=== PATIENT | female | born 1940 | race Caucasian/White ===

== ENCOUNTER → 2022-10-03 | Day surgery (SDC) | payer MEDICARE ==
[2022-09-28 13:47] LABS: BASOPHILS % 0.7 % (0.0-1.0); EOSINOPHILS # (AUTO) 0.2 (0.0-0.4); EOSINOPHILS % 4.5 % (0.0-6.0); HEMATOCRIT 37.8 % (34.2-44.1); HEMOGLOBIN 12.1 g/dL (12.0-16.0); LYMPHOCYTES # (AUTO) 1.7 (1.0-3.2); LYMPHOCYTES % 37.3 % (18.0-39.1); MEAN CORPUSCULAR HEMOGLOBIN 26.7 pg (28-32); MEAN CORPUSCULAR VOLUME 83.3 fL (81-99); MONOCYTES # (AUTO) 0.6 (0.2-0.8); MONOCYTES % 12.5 % (4.4-11.3); NEUTROPHILS % 44.8 % (38.7-80.0); PLATELET COUNT 106 x10e3/uL (140-360); RED BLOOD COUNT 4.54 x10e6/uL (3.6-5.1)
[~2022-10-03] MED LIST: ALTOPREV40 MG PO; CALCIUM 600 +1 EAC2 PO; EPHEDRINE SULFATE INJ 50 MG/ML VIAL ONE; FENTANYL CITRATE/PF 100MCG/2 ML INJ ONE; HYDROXYZIN10 MG/5 ML PO; KETAMINE HCL INJ 50 MG/ML 10 ML VIAL ONE; LACTATED RINGER'S 1,000 ML ONE; LEVOTHYROXINE112 MCG PO; MIDAZOLAM HCL 2 MG/2 ML VIAL ONE; MUCINEX DM ER1 EACH PO; OXYBUTYNIN CHLOR5 M1 PO; PHENYLEPHRINE HCL 1% 10 MG/ML VIAL ONE; PREDNISONE5 MG PO; PROBIOTIC & AC1 EACH PO; PROPOFOL IV EMULSION 10 MG/ML 50 ML VIAL IV ONE; PROPOFOL IV EMULSION 50 ML IV ONE; SULFASALAZINE500 MG PO; TRAMADOL HCL100 MG PO; VIT D PO; ZESTRIL10 MG PO; ZYRTEC-D TABLE1 EACH PO
[2022-10-03 10:01] VITALS: TEMP 97.1
[2022-10-03 11:00] VITALS: BP 111/70; PULSE 71; RESP 17; O2SAT 98
== END | disposition home or self-care (01) ==
LOC: OR 06:46
PROVIDERS: ATTEND Internal Medicine Gastroenterology
DX: K20.90 Esophagitis, unspecified without bleeding (principal); K63.5 Polyp of colon; K62.1 Rectal polyp; K29.50 Unspecified chronic gastritis without bleeding; K21.9 Gastro-esophageal reflux disease without esophagitis; K57.30 Diverticulosis of large intestine without perforation or abscess without bleeding; K64.8 Other hemorrhoids; R19.7 Diarrhea, unspecified; R15.2 Fecal urgency; R15.9 Full incontinence of feces; D72.820 Lymphocytosis (symptomatic); D64.9 Anemia, unspecified; I10 Essential (primary) hypertension; E78.5 Hyperlipidemia, unspecified; E03.9 Hypothyroidism, unspecified; Z01.810 Encounter for preprocedural cardiovascular examination; Z01.812 Encounter for preprocedural laboratory examination; Z79.899 Other long term (current) drug therapy; Z85.3 Personal history of malignant neoplasm of breast; Z80.0 Family history of malignant neoplasm of digestive organs
CPT/HCPCS: 36415; 43239; 43450; 45380; 45385; 85025; 93005; C9113; J2250; J2370; J2704; J3010; J7121; 45378

== ENCOUNTER → 2023-04-09 | Outpatient (REF) | payer MEDICARE ==
[~2023-04-09] MED LIST changes: -EPHEDRINE SULFATE INJ 50 MG/ML VIAL ONE; -FENTANYL CITRATE/PF 100MCG/2 ML INJ ONE; -KETAMINE HCL INJ 50 MG/ML 10 ML VIAL ONE; -LACTATED RINGER'S 1,000 ML ONE; -MIDAZOLAM HCL 2 MG/2 ML VIAL ONE; -PHENYLEPHRINE HCL 1% 10 MG/ML VIAL ONE; -PROPOFOL IV EMULSION 10 MG/ML 50 ML VIAL IV ONE; -PROPOFOL IV EMULSION 50 ML IV ONE
== END ==
LOC: NM 12:33
PROVIDERS: ATTEND Internal Medicine Gastroenterology
DX: R10.10 Upper abdominal pain, unspecified (principal)
CPT/HCPCS: 78227; A9537

== ENCOUNTER 2024-08-08 15:32 | Inpatient (IN) | payer MEDICARE ==
[~2024-08-08] VITALS: Ht 154.9 cm; Wt 72.6 kg
[2024-08-08] MEDS: ONDANSETRON HCL INJ 2MG/ML 2ML 2 MG/ML VIAL IV STA (16:59)
[2024-08-08] MEDS: SODIUM CHLORIDE 0.9% 1000ML 1,000 ML IV SCH ×3 (17:00→22:46)
[2024-08-08 17:21] LABS: BASOPHILS % 0.4 % (0.0-1.0); HEMATOCRIT 31.2 % (34.2-44.1); HEMOGLOBIN 10.1 g/dL (12.0-16.0); LYMPHOCYTES # (AUTO) 0.7 (1.0-3.2); LYMPHOCYTES % 8.3 % (18.0-39.1); MEAN CORPUSCULAR HEMOGLOBIN 25.3 pg (28-32); MEAN CORPUSCULAR HGB CONC 32.4 g/dL (31-35); MONOCYTES # (AUTO) 0.4 (0.2-0.8); MONOCYTES % 5.2 % (4.4-11.3); NEUTROPHILS # (AUTO) 7.1 (2.1-6.9); NEUTROPHILS % 85.6 % (38.7-80.0); PLATELET COUNT 175 x10e3/uL (140-360); RED CELL DISTRIBUTION WIDTH 16.1 % (11.7-14.4)
[2024-08-08 17:30] LABS: INR 1.15; PROTHROMBIN TIME 15.4 seconds (11.9-14.5)
[2024-08-08 17:31] LABS: PARTIAL THROMBOPLASTIN TIME 32.7 seconds (23.8-35.5)
[2024-08-08 17:37] LABS: ALBUMIN 2.7 g/dL (3.5-5.0); ALBUMIN/GLOBULIN RATIO 0.7 (0.8-2.0); ANION GAP 16.2 mmol/L (8-16); BILIRUBIN,TOTAL 0.9 mg/dL (0.2-1.2); CALCIUM 9.2 mg/dL (8.4-10.2); CREATININE, SERUM 1.33 mg/dL (0.57-1.11); POTASSIUM 4.2 mmol/L (3.5-5.1); TOTAL PROTEIN 6.8 g/dL (6.5-8.1)
[2024-08-08 17:39] LABS: CORONAVIRUS COVID-19 AG NEGATIVE (NEGATIVE); INFLUENZA B AG NEGATIVE (NEGATIVE)
[2024-08-08 17:40] LABS: INFLUENZA A AG POSITIVE (NEGATIVE)
[2024-08-08] MEDS ORDERED: OSELTAMIVIR PHOSPHATE 75 MG CAP PO SCH (17:45)
[2024-08-08] MEDS: ACETAMINOPHEN 325 MG TAB PO ONE (17:59)
[2024-08-08 18:00] LABS: BILIRUBIN,URINE SMALL (NEGATIVE); CLARITY,URINE SL CLOUDY (CLEAR); COLOR,URINE YELLOW (YELLOW); GLUCOSE, URINE NEGATIVE (NEGATIVE); KETONES,URINE NEGATIVE (NEGATIVE); LEUKOCYTE ESTERASE ,URINE NEGATIVE (NEGATIVE); NITRITE,URINE NEGATIVE (NEGATIVE); PH,URINE 5.5 (5 - 7); PROTEIN,URINE DIPSTICK >=300 (NEGATIVE); URINE UROBILINOGEN 0.2 mg/dL (0.2 - 1)
[2024-08-08 18:07] LABS: EPITHELIAL CELLS,URINE MANY /LPF
[2024-08-08 18:08] LABS: BACTERIA,URINE FEW /HPF; RBC,URINE 0-5 /HPF (0-5)
[2024-08-08] MEDS: OSELTAMIVIR PHOSPHATE 75 MG CAP PO ONE (18:26)
[2024-08-08] MEDS: KETOROLAC TROMETHAMINE 30 MG/ML VIAL IV STA (18:26)
[2024-08-08 19:36] VITALS: TEMP 98.6
[2024-08-08] MEDS: SODIUM CHLORIDE 0.9% 500ML 500 ML IV ONE ×2 (20:14→21:18)
[2024-08-08 21:45] VITALS: PULSE 76; RESP 15
[2024-08-08 22:45] VITALS: BP 74/46; PULSE 78; RESP 16; O2SAT 97
[2024-08-08] MEDS: MUPIROCIN 2% OINT 22 GM TUBE TOP SCH (22:46)
[2024-08-08 23:00] VITALS: BP 77/51; PULSE 76; RESP 14; TEMP 98.1; O2SAT 97
[2024-08-09] VITALS (28 sets, daily range): BP systolic 78–161; BP diastolic 46–86; PULSE 73–105; RESP 11–23; TEMP 98.8–100.9; O2SAT 94–100
[2024-08-09] MEDS ORDERED: PIOGLITAZONE15 MG PO (00:22)
[2024-08-09] MEDS ORDERED: HYDRALAZINE HCL 20 MG/ML VIAL IV PRN (02:45)
[2024-08-09] MEDS ORDERED: GUAIFENESIN/DEXTROMETHORPHAN LIQD 5 ML UDC PO PRN (02:45)
[2024-08-09] MEDS ORDERED: DOCUSATE SODIUM 100 MG CAP PO PRN (02:45)
[2024-08-09] MEDS ORDERED: ONDANSETRON HCL INJ 2MG/ML 2ML 2 MG/ML VIAL IV PRN (02:45)
[2024-08-09] MEDS: ACETAMINOPHEN 325 MG TAB PO PRN (03:32)
[2024-08-09 07:07] LABS: BASOPHILS % 0.3 % (0.0-1.0); EOSINOPHILS % 0.3 % (0.0-6.0); HEMATOCRIT 28.9 % (34.2-44.1); HEMOGLOBIN 9.1 g/dL (12.0-16.0); LYMPHOCYTES # (AUTO) 0.6 (1.0-3.2); LYMPHOCYTES % 9.5 % (18.0-39.1); MEAN CORPUSCULAR HEMOGLOBIN 25.2 pg (28-32); MEAN CORPUSCULAR HGB CONC 31.5 g/dL (31-35); MEAN CORPUSCULAR VOLUME 80.1 fL (81-99); MONOCYTES # (AUTO) 0.3 (0.2-0.8); MONOCYTES % 5.1 % (4.4-11.3); NEUTROPHILS # (AUTO) 5.1 (2.1-6.9); PLATELET COUNT 138 x10e3/uL (140-360); RED BLOOD COUNT 3.61 x10e6/uL (3.6-5.1); RED CELL DISTRIBUTION WIDTH 16.6 % (11.7-14.4); WHITE BLOOD COUNT 6.02 x10e3/uL (4.8-10.8)
[2024-08-09 07:43] LABS: ANION GAP 11.2 mmol/L (8-16); CALCIUM 8.7 mg/dL (8.4-10.2); CREATININE, SERUM 1.04 mg/dL (0.57-1.11); POTASSIUM 4.2 mmol/L (3.5-5.1)
[2024-08-09] MEDS: MULTIVITAMINS/MINERALS TAB PO SCH (08:15)
[2024-08-09] MEDS: LACTATED RINGER'S 1,000 ML INJ ONE (09:05)
[2024-08-09] MEDS: LACTOBACILLUS ACIDOPHILUS CAPSULE PO SCH (09:28)
[2024-08-09] MEDS: OSELTAMIVIR PHOSPHATE 30 MG CAPSULE PO SCH (09:28)
[2024-08-09] MEDS: LEVOTHYROXINE SODIUM 25 MCG TABLET PO SCH (11:09)
[2024-08-09] MEDS: LEVOTHYROXINE SODIUM 112 MCG TAB PO SCH (11:09)
[2024-08-09 13:04] LABS: CDIFF AG QUIK CHEK **POSITIVE** (NEGATIVE); CDIFF TOX QUIK CHEK **POSITIVE** (NEGATIVE)
[2024-08-09] MEDS: VANCOMYCIN 250MG/5ML ORAL SOLN PO SCH (13:23)
[2024-08-09] MEDS: METRONIDAZOLE 500MG/NS 100ML 100 ML IV SCH (13:24)
[2024-08-09] MEDS: ENOXAPARIN SOD INJ 40 MG/0.4 ML SYR SC SCH (16:42)
[2024-08-09] MEDS: TRAMADOL HCL 50 MG TAB PO PRN (18:26)
[2024-08-09] MEDS: ACETAMINOPHEN/CODEINE 300MG - 30MG TAB PO PRN (18:38)
[2024-08-09] MEDS: MELATONIN 3 MG TAB PO PRN (21:40)
[2024-08-10] VITALS (14 sets, daily range): BP systolic 104–136; BP diastolic 57–82; PULSE 77–98; RESP 13–20; TEMP 98–99.7; O2SAT 92–100
[2024-08-10] MEDS: DICYCLOMINE HCL 20 MG TAB PO STA (02:42)
[2024-08-10 06:56] LABS: BASOPHILS % 0.7 % (0.0-1.0); EOSINOPHILS # (AUTO) 0.1 (0.0-0.4); EOSINOPHILS % 2.6 % (0.0-6.0); HEMATOCRIT 27.9 % (34.2-44.1); HEMOGLOBIN 8.9 g/dL (12.0-16.0); LYMPHOCYTES # (AUTO) 0.9 (1.0-3.2); LYMPHOCYTES % 20.8 % (18.0-39.1); MEAN CORPUSCULAR HEMOGLOBIN 25.1 pg (28-32); MEAN CORPUSCULAR HGB CONC 31.9 g/dL (31-35); MEAN CORPUSCULAR VOLUME 78.8 fL (81-99); MONOCYTES # (AUTO) 0.3 (0.2-0.8); NEUTROPHILS # (AUTO) 2.9 (2.1-6.9); NEUTROPHILS % 67.2 % (38.7-80.0); PLATELET COUNT 134 x10e3/uL (140-360); RED BLOOD COUNT 3.54 x10e6/uL (3.6-5.1); RED CELL DISTRIBUTION WIDTH 16.6 % (11.7-14.4); WHITE BLOOD COUNT 4.27 x10e3/uL (4.8-10.8)
[2024-08-10 07:30] LABS: ALBUMIN/GLOBULIN RATIO 0.7 (0.8-2.0); ANION GAP 10.2 mmol/L (8-16); BILIRUBIN,TOTAL 0.4 mg/dL (0.2-1.2); CREATININE, SERUM 0.85 mg/dL (0.57-1.11); POTASSIUM 4.2 mmol/L (3.5-5.1)
[2024-08-10 08:35] LABS: BAND NEUTROPHILS % (MANUAL) 2 %; EOSINOPHILS % (MANUAL) 3 % (0-7); LYMPHOCYTES % (MANUAL) 18 % (19-48); MONOCYTES % (MANUAL) 1 % (3.4-9.0); NEUTROPHILS % (MANUAL) 76 % (40-74)
[2024-08-10 08:36] LABS: PLATELET ESTIMATE SLIGHTLY DECREASED; PLATELET MORPHOLOGY COMMENT NORMAL; RBC MORPHOLOGY COMMENT NORMAL
[2024-08-10 08:37] LABS: MICROCYTOSIS SLIGHT
[2024-08-10] MEDS: DICYCLOMINE HCL 20 MG TAB PO SCH (11:42)
[2024-08-10] MEDS: SODIUM BICARBONATE 8.4% VIAL 100 ML in SODIUM CHLORIDE 0.45% 1,000 ML IV SCH (11:43)
[2024-08-10 12:18] LABS: ANION GAP 13.4 mmol/L (8-16); CALCIUM 9.6 mg/dL (8.4-10.2); CREATININE, SERUM 0.8 mg/dL (0.57-1.11); POTASSIUM 4.4 mmol/L (3.5-5.1)
[2024-08-10] MEDS: VANCOMYCIN HCL 125 MG CAPSULE PO SCH (17:41)
[2024-08-10] MEDS ORDERED: VANCOMYCIN HCL 125 MG CAPSULE PO SCH (18:00)
[2024-08-11] VITALS (7 sets, daily range): BP systolic 108–136; BP diastolic 56–74; PULSE 65–91; RESP 16–20; TEMP 97.8–98.8; O2SAT 92–99
[2024-08-11 05:56] LABS: ALBUMIN 2.1 g/dL (3.5-5.0); ALBUMIN/GLOBULIN RATIO 0.7 (0.8-2.0); BILIRUBIN,TOTAL 0.4 mg/dL (0.2-1.2); CALCIUM 9.1 mg/dL (8.4-10.2); CREATININE, SERUM 0.77 mg/dL (0.57-1.11); TOTAL PROTEIN 5.2 g/dL (6.5-8.1)
[2024-08-11] MEDS: CHOLESTYRAMINE 4 GM PACKET PO PRN (12:16)
[2024-08-11] MEDS: CHOLESTYRAMINE 4 GM PACKET PO SCH (20:56)
[2024-08-11] MEDS: INSULIN LISPRO 100 UNIT/1 ML 3ML VIAL SQ SCH (20:57)
[2024-08-12] VITALS: BP 131/61; PULSE 74; RESP 18; TEMP 97.8; O2SAT 98
[2024-08-12 04:00] VITALS: BP 110/56; PULSE 71; RESP 18; TEMP 97.1; O2SAT 96
[2024-08-12 04:15] LABS: % IRON SATURATION 11 % (15-50); IRON 23 ug/dL (50-170); TOTAL IRON BINDING CAPACITY 210 ug/dL (261-478); TRANSFERRIN 150 mg/dL (180-382)
[2024-08-12 06:05] LABS: ALBUMIN 2.1 g/dL (3.5-5.0); ALBUMIN/GLOBULIN RATIO 0.7 (0.8-2.0); BILIRUBIN,TOTAL 0.3 mg/dL (0.2-1.2); CALCIUM 9.2 mg/dL (8.4-10.2); CREATININE, SERUM 0.74 mg/dL (0.57-1.11)
[2024-08-12 08:00] VITALS: BP 131/66; PULSE 73; RESP 18; TEMP 98.1; O2SAT 98
[2024-08-12] MEDS: CHOLESTYRAMINE 4 GM PACKET PO SCH (09:00)
[2024-08-12 12:00] VITALS: BP 122/59; PULSE 77; RESP 18; TEMP 98.3; O2SAT 97
[2024-08-12 16:00] VITALS: BP 135/70; PULSE 76; RESP 20; TEMP 98.5; O2SAT 98
[2024-08-12 20:00] VITALS: BP 149/74; PULSE 88; RESP 18; TEMP 97.7; O2SAT 96
[2024-08-12] MEDS: BISMUTH SUBSALICYLATE 262 MG TAB PO PRN (23:24)
[2024-08-12 23:47] LABS: FOLATE 6.7 ng/mL (7.0-15.4)
[2024-08-13] VITALS: BP 137/69; PULSE 82; RESP 20; TEMP 97.7; O2SAT 97
[2024-08-13 04:00] VITALS: BP 149/78; PULSE 88; RESP 20; TEMP 97; O2SAT 96
[2024-08-13] MEDS: SODIUM CHLORIDE 0.9% 250ML 250 ML ONE (08:28)
[2024-08-13] MEDS: IRON SUCROSE 100 MG in SODIUM CHLORIDE 0.9% 100 ML IV SCH (09:41)
[2024-08-13] MEDS: FOLIC ACID/CYANOCOB/PYRIDOXINE TAB PO SCH (09:41)
[2024-08-13] MEDS ORDERED: CHOLESTYRAMINE L4 GM PO (10:16)
[2024-08-13] MEDS ORDERED: CEPHALEXIN500 MG PO (10:16)
[2024-08-13] MEDS ORDERED: METRONIDAZOLE500 MG PO (10:16)
[2024-08-13] MEDS ORDERED: VANCOMYCIN HCL125 MG PO (10:16)
[2024-08-13] MEDS ORDERED: Folic Acid/Cyanocob/Pyridoxine PO (10:16)
[2024-08-13] MEDS ORDERED: DICYCLOMINE HCL20 MG PO (10:16)
[2024-08-13] MEDS ORDERED: PANTOPRAZOLE SO40 MG PO (10:18)
[2024-08-13] MEDS ORDERED: ONDANSETRON ODT4 MG PO (10:18)
[2024-08-13 12:00] VITALS: BP 149/78; PULSE 88; RESP 20; TEMP 97; O2SAT 96
[2024-08-13] MEDS ORDERED: ONDANSETRON HCL 4 MG ORAL DISINTEGRATING TAB PO PRN (13:15)
== END 2024-08-13 14:00 | disposition home or self-care (01) | DRG 871 ==
LOC: ER 16:11 → ERHOLD 18:01 → ICU 22:23 → MED/SURG3 08-10 14:04
PROVIDERS: ADMIT Internal Medicine; ATTEND Internal Medicine
DX: A41.89 Other specified sepsis (principal); J10.01 Influenza due to other identified influenza virus with the same other identified influenza virus pneumonia; N17.9 Acute kidney failure, unspecified; A04.72 Enterocolitis due to Clostridium difficile, not specified as recurrent; N39.0 Urinary tract infection, site not specified; E87.1 Hypo-osmolality and hyponatremia; E87.20 Acidosis, unspecified; R65.20 Severe sepsis without septic shock; B96.20 Unspecified Escherichia coli [E. coli] as the cause of diseases classified elsewhere; I95.9 Hypotension, unspecified; D50.9 Iron deficiency anemia, unspecified; I10 Essential (primary) hypertension; E78.5 Hyperlipidemia, unspecified; E11.9 Type 2 diabetes mellitus without complications; E03.9 Hypothyroidism, unspecified; E66.9 Obesity, unspecified; Z68.30 Body mass index [BMI] 30.0-30.9, adult; Z71.3 Dietary counseling and surveillance; J31.0 Chronic rhinitis; Z11.52 Encounter for screening for COVID-19; Z71.81 Spiritual or religious counseling; Z79.899 Other long term (current) drug therapy
CPT/HCPCS: 36415; 71045; 71046; 80048; 80053; 81001; 82607; 82746; 82948; 83540; 83605; 84466; 84484; 85025; 85045; 85610; 85730; 87040; 87086; 87186; 87324; 87449; 93005; 94799; 99284; J0696; J1650; J1756; J1885; J2405; J2470; J7030; J7040; J7050